=== PATIENT | female | born 1970 | race Caucasian/White ===

== ENCOUNTER → 2016-06-14 | Outpatient (CLI) | payer BC ==
--- NOTE | 2016-06-15 10:13 | MY ---
EXAMINATION: Bilateral digital mammography utilizing CAD. HISTORY: Lump. Baseline. FINDINGS: Bilateral extremely dense breast tissue. Several round masses are noted within the right breast within the region of concern, the largest triston sures approximately 3 cm mammographically. Targeted ultrasound evaluation of the subareolar to outer right breast demonstrates a 3 cm cyst at the 9 o'clock position and an adjacent 1.6 cm cyst. There is a deep 7 mm cyst at the 10 o'clock position within the far outer right breast. These all demonstr ate posterior acoustic enhancement and no internal color Doppler flow. No suspicious calcifications, masses or architectural distortions. No pathologic appearing lymph nodes, no abnormal skin thickening or nipple inversion. CAD highlighted regions appear normal at this time. IMPRESSION: BI-RADS category II - Benign finding. Continued screening according to ACR-ACS guidelines suggested. THE FALSE-NEGATIVE RATE OF MAMMOGRAM IS APPROXIMATELY 10%. MANAGEMENT OF A PALPABLE ABNORMALITY MUST BE BASED UPON CLINICAL GROUNDS. SENSITIVITY FOR DETECTION OF ABNORMALITIES IN DENSE BREASTS IS LOW. NOTE: A letter will be sent to the patient regarding findings. [facility] -- MAUREEN Fraga [phone] - FAX [phone]
== END ==
LOC: MW.MAM 09:47
PROVIDERS: ATTEND Obstetrics & Gynecology
DX: N63 Unspecified lump in breast (principal); N92.0 Excessive and frequent menstruation with regular cycle
CPT/HCPCS: 76642; G0204

== ENCOUNTER 2016-09-06 16:22 | Emergency (ER) | payer BC ==
[2016-09-06] MEDS ORDERED: Sodium Chloride 0.9% 1,000 ML IV ONE (16:50)
--- NOTE | 2016-09-06 16:57 | EDM.PDOC ---
ED HPI GENERAL MEDICAL PROBLEM - General Chief Complaint: General Stated Complaint: DEHYDRATED/DIZZY Time Seen by Provider: 09/06/16 16:51 Source of Information: Reports: Patient, Family History Limitations: Reports: No Limitations - History of Present Illness INITIAL COMMENTS - FREE TEXT/NARRATIVE: History of present illness: [46-year-old female comes in complaining of acute dizziness, weakness, and leg pains. Patient was outside last 2 or 3 days and her plus degree temperatures and now has a sunburn and is beginning to feel the effects.] Review of systems: As per history of present illness and below otherwise all systems reviewed and negative. Past medical history: As per history of present illness and as reviewed below otherwise noncontributory. Surgical history: As per history of present illness and as reviewed below otherwise noncontributory. Social history: No reported history of drug or alcohol abuse. Family history: As per history of present illness and as reviewed below otherwise noncontributory. Physical exam: HEENT: Atraumatic, normocephalic, pupils reactive, negative for conjunctival pallor or scleral icterus, mucous membranes moist, throat clear, neck supple, nontender, trachea midline. Lungs: Clear to auscultation, breath sounds equal bilaterally, chest nontender. Heart: S1S2, regular, negative for clicks, rubs, or JVD. Abdomen: Soft, nondistended but diffuse nonspecific tenderness. Negative for masses or hepatosplenomegaly. Negative for costovertebral tenderness. Pelvis: Stable nontender. Genitourinary: Deferred. Rectal: Deferred. Extremities: Atraumatic, negative for cords or calf pain. Neurovascular unremarkable. Neuro: Awake, alert, oriented. Cranial nerves II through XII unremarkable. Cerebellum unremarkable. Motor and sensory unremarkable throughout. Exam nonfocal. Diagnostics: [CBC, CMP, lactic acid, CT of abdomen with contrast] Therapeutics: [] Impression: [Constipation, UTI, ovarian cysts] Plan: [Macrobid hydrate] Definitive disposition and diagnosis as appropriate pending reevaluation and review of above. - Related Data Allergies Allergy/AdvReac Type Severity Reaction Status Date / Time Penicillins Allergy Other Verified 09/06/16 16:52 Home Meds: Home Meds Nitrofurantoin Monohyd/M-Cryst [IJD: Nitrofurantoin [place]-MCR] 100 mg PO BID #20 cap 09/06/16 [Rx] Past Medical History Genitourinary History: Reports: None - Infectious Disease History Infectious Disease History: Reports: Chicken Pox Other Infectious Disease History: childhood - Past Surgical History Female Surgical History: Reports: Section Musculoskeletal Surgical History: Reports: Arthroscopic Knee Social & Family History - Family History Family Medical History: Noncontributory - Tobacco Use Smoking Status *Q: Never Smoker Second Hand Smoke Exposure: No - Recreational Drug Use Recreational Drug Use: No ED ROS GENERAL - Review of Systems Review Of Systems: See Below (See history of present illness) ED EXAM, GENERAL - Physical Exam Exam: See Below (See history of present illness) Course - Vital Signs Last Recorded V/S: Last Vital Signs Temp 36.8 C 09/06/16 19:08 Pulse 81 09/06/16 19:08 Resp 16 09/06/16 19:08 BP 114/70 09/06/16 19:08 Pulse Ox 96 09/06/16 19:08 - Orders/Labs/Meds Orders: Active Orders 24 hr Category Date Time Status Abdomen Pelvis w Cont [CT] Stat Exams 09/06/16 17:39 Taken Labs: Laboratory Tests 09/06/16 09/06/16 09/06/16 Range/Units 16:58 16:58 17:46 WBC 16.54 H (4.0-11.0) K/uL RBC 4.35 (4.30-5.90) M/uL Hgb 13.3 (12.0-16.0) g/dL Hct 39.8 (36.0-46.0) % MCV 91.5 (80.0-98.0) fL MCH 30.6 (27.0-32.0) pg MCHC 33.4 (31.0-37.0) g/dL RDW Std Deviation 48.8 (28.0-62.0) fl RDW Coeff of Regan 14 (11.0-15.0) % Plt Count 278 (150-400) K/uL MPV 11.60 (7.40-12.00) fL Neut % (Auto) 88.1 H (48.0-80.0) % Lymph % (Auto) 5.2 L (16.0-40.0) % [place] % (Auto) 6.4 (0.0-15.0) % Eos % (Auto) 0.1 (0.0-7.0) % Baso % (Auto) 0.2 (0.0-1.5) % Neut # (Auto) 14.6 H (1.4-5.7) K/uL Lymph # (Auto) 0.9 (0.6-2.4) K/uL [place] # (Auto) 1.1 H (0.0-0.8) K/uL Eos # (Auto) 0.0 (0.0-0.7) K/uL Baso # (Auto) 0.0 (0.0-0.1) K/uL Nucleated RBC % 0.0 /100WBC Nucleated RBCs # 0 K/uL Lactate 1.0 (0.20-2.00) mmol/L Sodium 139 (136-146) mmol/L Potassium 3.7 (3.5-5.1) mmol/L Chloride 107 (98-110) mmol/L Carbon Dioxide 24 (21-31) mmol/L BUN 14 (6.0-23.0) mg/dL Creatinine 0.8 (0.6-1.5) mg/dL Est Cr Clr Drug Dosing 100.30 mL/min Estimated GFR (MDRD) > 60.0 ml/min Glucose 102 (60-110) mg/dL Calcium 9.6 (8.8-10.8) mg/dL Total Bilirubin 0.4 (0.1-1.5) mg/dL AST 25 (5-40) IU/L ALT 25 (8-54) IU/L Alkaline Phosphatase 83 (40-150) Total Protein 8.1 H (6.0-8.0) g/dL Albumin 4.2 (3.5-5.0) g/dL Globulin 3.9 H (2.0-3.5) g/dL Albumin/Globulin Ratio 1.1 L (1.3-2.8) Urine Color Urine Appearance Urine pH (5.0-8.0) Ur Specific [place] (1.001-1.035) Urine Protein (NEGATIVE) mg/dL Urine Glucose (UA) (NEGATIVE) mg/dL Urine Ketones (NEGATIVE) mg/dL Urine Occult Blood (NEGATIVE) Urine Nitrite (NEGATIVE) Urine Bilirubin (NEGATIVE) Urine Urobilinogen (<2.0) EU/dL Ur Leukocyte Esterase (NEGATIVE) Urine RBC (0-2/HPF) Urine WBC (0-5/HPF) Ur Epithelial Cells (NONE-FEW) Urine Bacteria (NEGATIVE) 09/06/16 Range/Units 18:22 WBC (4.0-11.0) K/uL RBC (4.30-5.90) M/uL Hgb (12.0-16.0) g/dL Hct (36.0-46.0) % MCV (80.0-98.0) fL MCH (27.0-32.0) pg MCHC (31.0-37.0) g/dL RDW Std Deviation (28.0-62.0) fl RDW Coeff of Regan (11.0-15.0) % Plt Count (150-400) K/uL MPV (7.40-12.00) fL Neut % (Auto) (48.0-80.0) % Lymph % (Auto) (16.0-40.0) % [place] % (Auto) (0.0-15.0) % Eos % (Auto) (0.0-7.0) % Baso % (Auto) (0.0-1.5) % Neut # (Auto) (1.4-5.7) K/uL Lymph # (Auto) (0.6-2.4) K/uL [place] # (Auto) (0.0-0.8) K/uL Eos # (Auto) (0.0-0.7) K/uL Baso # (Auto) (0.0-0.1) K/uL Nucleated RBC % /100WBC Nucleated RBCs # K/uL Lactate (0.20-2.00) mmol/L Sodium (136-146) mmol/L Potassium (3.5-5.1) mmol/L Chloride (98-110) mmol/L Carbon Dioxide (21-31) mmol/L BUN (6.0-23.0) mg/dL Creatinine (0.6-1.5) mg/dL Est Cr Clr Drug Dosing mL/min Estimated GFR (MDRD) ml/min Glucose (60-110) mg/dL Calcium (8.8-10.8) mg/dL Total Bilirubin (0.1-1.5) mg/dL AST (5-40) IU/L ALT (8-54) IU/L Alkaline Phosphatase (40-150) Total Protein (6.0-8.0) g/dL Albumin (3.5-5.0) g/dL Globulin (2.0-3.5) g/dL Albumin/Globulin Ratio (1.3-2.8) Urine Color YELLOW Urine Appearance CLEAR Urine pH 7.0 (5.0-8.0) Ur Specific [place] 1.015 (1.001-1.035) Urine Protein NEGATIVE (NEGATIVE) mg/dL Urine Glucose (UA) NEGATIVE (NEGATIVE) mg/dL Urine Ketones 15 H (NEGATIVE) mg/dL Urine Occult Blood NEGATIVE (NEGATIVE) Urine Nitrite NEGATIVE (NEGATIVE) Urine Bilirubin NEGATIVE (NEGATIVE) Urine Urobilinogen 1.0 (<2.0) EU/dL Ur Leukocyte Esterase TRACE (NEGATIVE) Urine RBC 0-1 (0-2/HPF) Urine WBC 0-1 (0-5/HPF) Ur Epithelial Cells FEW (NONE-FEW) Urine Bacteria FEW (NEGATIVE) Meds: Medications Discontinued Medications Generic Name Dose Route Start Last Admin Trade Name El PRN Reason Stop Dose Admin Sodium Chloride 1,000 mls @ 999 mls/hr 09/06/16 16:50 09/06/16 17:02 Normal Saline IV 09/06/16 17:50 999 mls/hr STAT ONE Administration Iopamidol 100 ml 09/06/16 18:02 09/06/16 18:03 Isovue Multipack-370 (76%) IVPUSH 09/06/16 18:03 100 ml ONETIME STA Administration Ketorolac Tromethamine 30 mg 09/06/16 18:02 09/06/16 18:25 Toradol IVPUSH 09/06/16 18:03 30 mg ONETIME ONE Administration Departure - Departure Time of Disposition: 19:20 Disposition: Home, Self-Care 01 Condition: Good Clinical Impression: UTI, Urinary tract infectious disease, Dehydration, Constipation - Discharge Information Prescriptions: Nitrofurantoin Monohyd/M-Cryst [IJD: Nitrofurantoin [place]-MCR] 100 mg PO BID #20 cap Forms: ED Department Discharge Additional Instructions: The following information is given to patients seen in the emergency department who are being discharged to home. This information is to outline your options for follow-up care. We provide all patients seen in our emergency department with a follow-up referral. The need for follow-up, as well as the timing and circumstances, are variable depending upon the specifics of your emergency department visit. If you don't have a primary care physician on staff, we will provide you with a referral. We always advise you to contact your personal physician following an emergency department visit to inform them of the circumstance of the visit and for follow-up with them and/or the need for any referrals to a consulting specialist. The emergency department will also refer you to a specialist when appropriate. This referral assures that you have the opportunity for follow-up care with a specialist. All of these measure are taken in an effort to provide you with optimal care, which includes your follow-up. Under all circumstances we always encourage you to contact your private physician who remains a resource for coordinating your care. When calling for follow-up care, please make the office aware that this follow-up is from your recent emergency room visit. If for any reason you are refused follow-up, please contact the [facility] Emergency Department at and asked to speak to the emergency department charge nurse. Take Medication as directed Follow-up with PCP 1-2 days Return to ED as needed as discussed - My Orders Last 24 Hours: My Active Orders 09/06/16 17:39 Abdomen Pelvis w Cont [CT] Stat - Assessment/Plan Last 24 Hours: My Active Orders 09/06/16 17:39 Abdomen Pelvis w Cont [CT] Stat
[2016-09-06 17:28] LABS: CHLORIDE,CL 107 mmol/L (98-110); SODIUM,NA 139 mmol/L (136-146)
[2016-09-06] MEDS ORDERED: Iopamidol 755 MG/ML 500 ML Multipack Bottle IVPUSH STA (18:02)
[2016-09-06] MEDS ORDERED: Ketorolac 30 MG/ML SDV IVPUSH ONE (18:02)
[2016-09-06 19:34] VITALS: BP 115/70
--- NOTE | 2016-09-07 16:25 | CT ---
EXAM DATE: 09/06/16 PATIENT'S AGE: 46 Patient: TARI UREÑA Facility: [place], [place] Site . Site : [id number] Study: CT Abdomen/Pelvis [id number]/[id number] 6:44:32 PM Ordering Physician: Doctor Arana Final Report: INDICATION: Lower abdominal pain. CT ABDOMEN AND PELVIS WITH CONTRAST TECHNIQUE: Multidetector CT imaging was performed through the abdomen and pelvis following intravenous contrast administration using 100 mL Isovue 370. Delayed images were performed through the urinary bladder. Coronal and sagittal reconstructions were generated. COMPARISON: None. FINDINGS: Lower chest: Lung bases are clear. Liver: Unremarkable aside from a small cyst in the left hepatic lobe on image 31 of series 201. Gallbladder and bile ducts: No gallbladder wall thickening or calcified gallstones. No biliary dilation identified. Pancreas: Unremarkable. Spleen: Normal. Adrenals: No nodules or masses. Kidneys, ureters, and urinary bladder: No renal masses or hydronephrosis. Incomplete distention of the urinary bladder. No obvious bladder mass or definite wall thickening. Gastrointestinal tract: Normal caliber small bowel without wall thickening. The appendix is normal. Redundant colon. Prominent volume of stool in the colon suggesting constipation. Vascular structures: Normal for age. Peritoneum: No free air, abscess, or significant free fluid. Lymph nodes: No pathologically enlarged nodes identified. Reproductive organs: Multiple cystic foci within both ovaries, the largest in the left ovary measuring 4 centimeters in size. Bilateral adnexal surgical clips. Bones: Unremarkable aside from degenerative disc disease at the lumbosacral junction. IMPRESSION: 1. Multiple bilateral ovarian cystic foci, the largest in the left ovary measuring 4 centimeters in size. Consider pelvic ultrasound for further evaluation. 2. Prominent amount of stool within the colon, suggesting constipation. 3. Nonacute additional findings as detailed above. ARTURO MARTINEZ MD [employer] Dictated by Jorden Martinez MD @ 09/06/2016 7:08:26 PM Dictated by: Jorden Martinez MD @ 09/06/2016 19:09:57 (Electronic Signature) Report Signed by Proxy. [facility]
== END 2016-09-06 19:32 | disposition home or self-care (01) ==
LOC: MW.ED 16:22
DX: N39.0 Urinary tract infection, site not specified (principal); E86.0 Dehydration; K59.00 Constipation, unspecified; Z88.0 Allergy status to penicillin; Z98.890 Other specified postprocedural states
CPT/HCPCS: 36415; 74177; 80053; 81001; 83605; 85025; 96361; 96374; 99284; J1885; J7040; Q9967; 99282

== ENCOUNTER 2016-10-02 06:30 | Day surgery (SDC) | payer BC ==
[2016-10-01 10:26] LABS: CHLORIDE,CL 107 mmol/L (98-110); SODIUM,NA 142 mmol/L (136-146)
[~2016-10-02 06:30] MED LIST: Bupivacaine 0.25% 10 ML SDV ONE; Methylene Blue 50 MG/10 ML Ampule ONE
[2016-10-02] MEDS ORDERED: Scopolamine 1.5 MG Transdermal Patch TRDERM PRN (07:03)
--- NOTE | 2016-10-02 07:03 | PCM.PREANE ---
Preanesthetic Assessment - Anesthesia/Transfusion/Family Hx Anesthesia History: Prior Anesthesia Reaction Family History of Anesthesia Reaction: No Transfusion History: No Prior Transfusion(s) Intubation History: Unknown - Review of Systems General: No Symptoms Pulmonary: No Symptoms Cardiovascular: No Symptoms Gastrointestinal: No Symptoms Neurological: No Symptoms Other: Reports: None - Physical Assessment O2 Sat by Pulse Oximetry: 98 Respiratory Rate: 16 Vital Signs: Last Vital Signs Temp 36.2 C 10/02/16 06:39 Pulse 79 10/02/16 06:39 Resp 16 10/02/16 06:39 BP 122/63 10/02/16 06:39 Pulse Ox 98 10/02/16 06:39 Height: 1.77 m Weight: 103.873 kg ASA Class: 2 Mental Status: Alert & Oriented x3 Airway Class: Mallampati = 3 Dentition: Reports: Normal Dentition Thyro-Mental Finger Breadths: 3 Mouth Opening Finger Breadths: 3 ROM/Head Extension: Full Lungs: Clear to Auscultation, Normal Respiratory Effort Cardiovascular: Regular Rate, Regular Rhythm - Lab Values: Laboratory Last Values WBC 5.92 K/uL (4.0-11.0) 10/01/16 09:42 RBC 4.48 M/uL (4.30-5.90) 10/01/16 09:42 Hgb 13.6 g/dL (12.0-16.0) 10/01/16 09:42 Hct 41.3 % (36.0-46.0) 10/01/16 09:42 MCV 92.2 fL (80.0-98.0) 10/01/16 09:42 MCH 30.4 pg (27.0-32.0) 10/01/16 09:42 MCHC 32.9 g/dL (31.0-37.0) 10/01/16 09:42 RDW Std Deviation 47.9 fl (28.0-62.0) 10/01/16 09:42 RDW Coeff of Regan 14 % (11.0-15.0) 10/01/16 09:42 Plt Count 257 K/uL (150-400) 10/01/16 09:42 MPV 11.60 fL (7.40-12.00) 10/01/16 09:42 Nucleated RBC % 0.0 /100WBC 10/01/16 09:42 Nucleated RBCs # 0 K/uL 10/01/16 09:42 Sodium 142 mmol/L (136-146) 10/01/16 09:42 Potassium 4.4 mmol/L (3.5-5.1) 10/01/16 09:42 Chloride 107 mmol/L (98-110) 10/01/16 09:42 Carbon Dioxide 28 mmol/L (21-31) 10/01/16 09:42 BUN 17 mg/dL (6.0-23.0) 10/01/16 09:42 Creatinine 0.8 mg/dL (0.6-1.5) 10/01/16 09:42 Est Cr Clr Drug Dosing 96.23 mL/min 10/01/16 09:42 Estimated GFR (MDRD) > 60.0 ml/min 10/01/16 09:42 Glucose 90 mg/dL (60-110) 10/01/16 09:42 Calcium 9.2 mg/dL (8.8-10.8) 10/01/16 09:42 HCG, Qual NEGATIVE (NEG) 10/01/16 09:42 Blood Type A NEGATIVE 10/01/16 09:42 Antibody Screen NEGATIVE 10/01/16 09:42 - Allergies Allergies/Adverse Reactions: Allergies Allergy/AdvReac Type Severity Reaction Status Date / Time ceftriaxone [From Rocephin] Allergy Hives Verified 09/28/16 10:38 hydrocodone Allergy Vomiting Verified 10/02/16 06:46 Penicillins Allergy Airway Verified 09/28/16 10:38 Tightness - Blood Blood Available: No - Anesthesia Plan Pre-Op Medication Ordered: None - Acknowledgements Anesthesia Type Planned: General Anesthesia Pt an Appropriate Candidate for the Planned Anesthesia: Yes Alternatives and Risks of Anesthesia Discussed w Pt/Guardian: Yes Pt/Guardian Understands and Agrees with Anesthesia Plan: Yes PreAnesthesia Questionnaire HEENT History: Reports: Other (See Below) Other HEENT History: wears glasses/contacts, hx of fx nose Cardiovascular History: Reports: None Respiratory History: Reports: None Gastrointestinal History: Reports: None Genitourinary History: Reports: UTI, Recurrent Other Genitourinary History: last one was 1 month ago [employer] History: Reports: Endometriosis, , Other (See Below) Other OB/BYN History: ovarian cysts Musculoskeletal History: Reports: Fracture Other Musculoskeletal History: hx of fx ankle and wrist Neurological History: Reports: Concussion Psychiatric History: Reports: None Endocrine/Metabolic History: Reports: Obesity/BMI 30+ Hematologic History: Reports: None Immunologic History: Reports: None Oncologic (Cancer) History: Reports: None Dermatologic History: Reports: None - Infectious Disease History Infectious Disease History: Reports: Chicken Pox Other Infectious Disease History: childhood - Past Surgical History Head Surgeries/Procedures: Reports: None HEENT Surgical History: Reports: Oral Surgery Other HEENT Surgeries/Procedures: wisdom teeth Female Surgical History: Reports: Section, D&C, Endometrial Ablation , Tubal Ligation Other Female Surgeries/Procedures: Uterine Ablation Musculoskeletal Surgical History: Reports: Arthroscopic Knee (left knee ACL repair) - SUBSTANCE USE Smoking Status *Q: Never Smoker Second Hand Smoke Exposure: No Recreational Drug Use History: No - HOME MEDS Home Medications: Home Meds Progesterone,Micronized [Progesterone] 200 mg PO DAILY 09/28/16 [History] - CURRENT (IN HOUSE) MEDS Current Meds: Current Medications Discontinued Medications Bupivacaine HCl (Sensorcaine-Mpf 0.25%) Confirm Administered Dose 20 ml .ROUTE .STK-MED ONE Stop: 10/01/16 15:28 Methylene Blue (Provayblue) Confirm Administered Dose 50 mg .ROUTE .STK-MED ONE Stop: 10/01/16 15:28
[2016-10-02] MEDS ORDERED: Rocuronium 10 MG/ML 10 ML Syringe ONE (07:16)
[2016-10-02] MEDS ORDERED: Ondansetron 4 MG/2 ML SDV ONE (07:16)
[2016-10-02] MEDS ORDERED: Dexamethasone 4 MG/ML 5 ML MDV ONE (07:16)
[2016-10-02] MEDS ORDERED: Neostigmine Methylsulfate 1 MG/ML 5 ML Syringe ONE (07:16)
[2016-10-02] MEDS ORDERED: fentaNYL 250 MCG/5 ML SDV ONE (07:17)
[2016-10-02] MEDS ORDERED: Propofol 200 MG/20 ML SDV ONE ×3 (07:17→09:19)
[2016-10-02] MEDS ORDERED: Midazolam 1 MG/ML 2 ML SDV ONE (07:17)
[2016-10-02] MEDS ORDERED: Fluorescein 5 ML Vial ONE (07:26)
[2016-10-02] MEDS ORDERED: fentaNYL 100 MCG/2 ML SDV ONE (08:52)
--- NOTE | 2016-10-02 10:22 | PCM.OPNOTE ---
- General Post-Op/Procedure Note Date of Surgery/Procedure: 10/02/16 Operative Procedure(s): Laparoscopic assisted vaginal hysterectomy with bilateral salpingo-oopherectomy and cystoscopy and lysis of adhesions Findings: Stave IV endometriosis,10 week size uterus, the bilateral ovaries were found to be adherent to posterior aspect of the uterus. On cystoscopy bilateral ureteral orifices with copious flow of bright green urine, no evidence of trauma to the bladder mucosa. Pre Op Diagnosis: Endometriosis, endometrial hyperplasia, menorrhagia, dysmenorrhea Post-Op Diagnosis: Same Anesthesia Technique: General ET Tube Primary Surgeon: Lida Hernandez Secondary Surgeon: Yomaira Lee Anesthesia Provider: Ernesto Donovan Training Associate: Juan Adan Pathology: Uterus, bilateral ovaries, bilateral fallopian tubes sent to pathology. Fluid Replacement, Intraop: 1,300 EBL in mLs: 200 Complications: None Known Condition: Good
[2016-10-02] MEDS: fentaNYL 100 MCG/2 ML SDV IVPUSH PRN ×4 (10:25→10:50)
[2016-10-02] MEDS ORDERED: Promethazine 25 MG/ML SDV IM PRN (10:32)
[2016-10-02] MEDS ORDERED: Acetaminophen/oxyCODONE 325-5 MG Tab PO PRN (10:32)
[2016-10-02] MEDS ORDERED: Morphine 2 MG/ML Syringe IVPUSH PRN (10:32)
[2016-10-02] MEDS ORDERED: Ketorolac 30 MG/ML SDV IVPUSH ONE (10:32)
[2016-10-02] MEDS ORDERED: Ondansetron 4 MG/2 ML SDV IVPUSH PRN (10:32)
--- NOTE | 2016-10-02 11:06 | PCM.POSTAN ---
POST ANESTHESIA ASSESSMENT - MENTAL STATUS Mental Status: Alert, Oriented - RESPIRATORY Respiratory Status: Respiratory Rate WNL, Airway Patent, O2 Saturation Stable - CARDIOVASCULAR CV Status: Pulse Rate WNL, Blood Pressure Stable - GASTROINTESTINAL GI Status: No Symptoms - PAIN Pain Score: 5 - POST OP HYDRATION Hydration Status: Adequate & Stable - OBSERVATIONS Free Text/Narrative:: no anesthesia problems
[2016-10-02] MEDS: Ketorolac 30 MG/ML SDV IVPUSH SCH ×2 (12:06→16:51)
--- NOTE | 2016-10-02 12:35 | OR ---
SURGEON: Lida Hernandez M.D. DATE OF PROCEDURE: 10/02/2016 PREOPERATIVE DIAGNOSES: Endometriosis, menometrorrhagia, and endometrial hyperplasia. POSTOPERATIVE DIAGNOSES: Endometriosis, menometrorrhagia, endometrial hyperplasia, and extensive pelvic adhesions. ASSISTANTS: 1. trust manager assistant: Yomaira Lee. 2. Second junior sales assistant: Tianna Murray MS-4. ANESTHESIA: General endotracheal. FLUIDS: 1300 mL crystalloid. ESTIMATED BLOOD LOSS: 200 mL. FINDINGS: The uterus was very well supported, approximately 10-week size, bilateral adnexa were adhered to the posterior uterus with some obliteration of the posterior cul- de-sac. There were brown implants along the peritoneum consistent with endometriosis as well as endometriomas onto the ovaries. Upon cystoscopy, there was copious flow of bright green urine from bilateral ureteral orifices. There was no evidence of any trauma to the bladder mucosa. COMPLICATIONS: None known. DISPOSITION: Stable to recovery. BRIEF HISTORY: This is a 46-year-old female. She has a history of endometriosis documented at the time of tubal sterilization. She also had an endometrial ablation. She presented to the emergency room most recently with dehydration and pelvic pain. She was found to have bilateral ovarian cysts. The largest was on the left measuring 4.9 cm. She has been followed with serial endometrial biopsies due to focus of complex hyperplasia from the endometrial curettings at the time of ablation. She continues to have lower abdominal pain and cramping. She no longer has any heavy bleeding. She has been taking Prometrium due to the endometrial hyperplasia. She desires to proceed with definitive therapy for endometriosis with hysterectomy and declined further medical management as she has completed childbearing and she has a history of endometrial hyperplasia. She is consented for a laparoscopically-assisted vaginal hysterectomy with bilateral salpingo-oophorectomy and cystoscopy with possible abdominal hysterectomy. She is higher risk for abdominal hysterectomy due to the history of adhesions, ovarian cyst, endometriosis, and having prior section. She understands this and agrees to proceed with surgery. Further risks including bleeding, infection, injury to bowel, bladder, blood vessels, ureters, or other organs, risk of thromboembolic event, and risk of anesthesia were discussed. DESCRIPTION OF PROCEDURE: With the patient in dorsal lithotomy position, under adequate general tracheal anesthesia, the abdomen was prepped with chlorhexidine and the vaginal and perineal areas were prepped with Betadine and draped in usual fashion for laparoscopically-assisted vaginal surgery. SCDs were in place. An appropriate time-out was held. She had received 2 g of Ancef IV after a test dose had been performed due to her prior reported allergy to Rocephin. After the time-out was held, bimanual examination was performed. Ortiz catheter had been placed. The bladder was backfilled with 30 mL of dilute methylene blue. Bimanual examination revealed a minimally mobile enlarged firm uterus. Hulka tenaculum was placed on the cervix. The speculum was removed. Credit Administrator's gloves were changed. Attention was then turned abdominally, where 3 mL of 0.25% Marcaine were injected inferior to the umbilicus. The anterior abdominal wall was elevated and after a small incision was made, the Veress needle was inserted into the peritoneal cavity. Confirmation of intraperitoneal placement was performed with a hanging drop test as well as opening CO2 pressure of 3 to 4 mmHg. CO2 was insufflated to develop an adequate pneumoperitoneum of 13 mmHg. The 5 mm port was placed beneath the umbilicus. The patient was placed in steep Trendelenburg position. The uterus was elevated, now was made of extensive adhesions posterior to the uterus. Two additional ports were placed 2 cm cephalad and medial to the anterior superior iliac spines on the right and the left. These were placed using a 0.25% Marcaine followed by a 5 mm incision followed by direct visualization of the placement of the port without any difficulty. The uterus was elevated. The bowel was retracted upwards and the ovaries were dissected free from the posterior cul-de-sac and the posterior uterus using blunt dissection and hydrodissection. This being performed, bilateral ureters could be identified in the medial leaf of the broad ligament. Using the LigaSure, the infundibulopelvic ligaments were then cross clamped, doubly ligated, and cut using the LigaSure coming proximally to the round ligament taking multiple pedicles with the LigaSure. The round ligament was doubly cauterized and cut. The anterior leaf of the broad ligament was then opened as was the posterior leaf. There was extensive adhesions related to posterior leaf of the broad ligament, which was opened slightly, but was then involved in extensive adhesions. The two additional pedicles were taken on the right and the left using the LigaSure. The anterior peritoneum was opened to develop an adequate bladder flap using the LigaSure as well as hydrodissection. This being completed with difficulty visualizing the lower pedicles due to the adhesions in the posterior cul-de-sac. Decision was made to proceed with a vaginal approach for the remainder of the surgery. Therefore, the abdomen was desufflated and the camera light was turned off. Instruments were retained on the abdomen and attention was then turned vaginally. The backfilled catheter was released and the weighted speculum was placed posteriorly. Cervix was grasped with a Lindsey tenaculum and the cervix was circumscribed using electrocautery. The anterior cul-de-sac was then entered using sharp and blunt dissection. The posterior cul-de-sac was attempted to be entered, but again there were extensive adhesions. After the posterior cul-de-sac was partially entered, bilateral uterosacral ligaments were cross clamped, cut, and ligated using a Emilio ligature of 0 Polysorb. At this point, I was unable to completely enter the posterior cul-de-sac and confirm that I was within the peritoneal cavity. The upper uterosacral ligament portion was then cross clamped, cut, and ligated using a Emilio ligature of 2-0 Polysorb. The remainder of the small pedicle above this was then clamped, cut, and ligated. The uterus, tubes, and ovaries were then delivered vaginally. The pedicles were inspected and appeared hemostatic. Therefore, the retained uterosacral ligatures were ligated to the vaginal apices bilaterally. The vaginal cuff was closed with a running lock suture of 0 Polysorb. Cystoscopy was then performed after the Ortiz catheter had been removed. IV fluorescein and Lasix have been given. There was copious flow of green urine from bilateral ureteral orifices. There was also no evidence of any trauma to the bladder mucosa. The speculum was then placed into the vagina again to confirm hemostasis of the vaginal cuff and it was hemostatic. The Ortiz catheter was then replaced and the vertical mill operator's gloves and gown were changed and attention was then turned again abdominally. The abdomen was re-insufflated. The pelvis was copiously irrigated, carefully inspected. Under high and low pressure, there were no areas of bleeding. In the anterior cul-de-sac, the Endo Avitene was placed as well as an area on the right, where there was just a small amount of oozing. The pelvis being completely hemostatic. The abdomen was completely desufflated. The ports were removed. The skin was closed with subcuticular suture of 4-0 Monocryl. Final sponge, needle, and instrument counts were reported as correct. There were no known complications. The patient was transferred to recovery in good condition. BALTAZAR BENOIT /[id number]
--- NOTE | 2016-10-02 17:55 | PCM.SURGPN ---
- General Info Date of Service: 10/02/16 Date of Surgery/Procedure: 10/02/16 POD#: 0 Post-Op Diagnosis: menorrhagia, stage IV endometriosis, endometrial hyperplasia. Functional Status: Reports: Pain Controlled, Tolerating Diet, Ambulating, Other (requests to be discharged this evening, states she has walked, eaten and pain is controlled.). Denies: Urinating (catheter has not yet been removed.) - Review of Systems General: Reports: No Symptoms HEENT: Reports: No Symptoms Pulmonary: Reports: No Symptoms Cardiovascular: Reports: No Symptoms Gastrointestinal: Reports: No Symptoms Genitourinary: Reports: No Symptoms Musculoskeletal: Reports: No Symptoms Skin: Reports: No Symptoms Neurological: Reports: No Symptoms Psychiatric: Reports: No Symptoms - Patient Data Vitals - Most Recent: Last Vital Signs Temp 36.3 C 10/02/16 16:50 Pulse 63 10/02/16 16:50 Resp 16 10/02/16 16:50 BP 112/58 L 10/02/16 16:50 Pulse Ox 96 10/02/16 16:50 Weight - Most Recent: 103.873 kg I&O - Last 24 Hours: Intake & Output 10/02/16 10/02/16 10/02/16 06:59 14:59 22:59 Intake Total 3100 150 Output Total 800 355 Balance 2300 -205 Med Orders - Current: Current Medications Ketorolac Tromethamine (Toradol) 30 mg IVPUSH Q6H ESTHER Stop: 10/07/16 10:32 Last Admin: 10/02/16 16:51 Dose: 30 mg Morphine Sulfate (Morphine) 2 mg IVPUSH Q2H PRN PRN Reason: Pain (severe 7-10) Last Admin: 10/02/16 12:11 Dose: 2 mg Ondansetron HCl (Zofran) 4 mg IVPUSH Q6H PRN PRN Reason: Nausea/Vomiting Last Admin: 10/02/16 12:34 Dose: 4 mg Oxycodone/Acetaminophen (Percocet 325-5 Mg) 1 - 2 tab PO Q4H PRN PRN Reason: Pain (moderate 4-6) Promethazine HCl (Phenergan) 25 mg IM Q6H PRN PRN Reason: Nausea/Vomiting Scopolamine (Transderm-Scop) 1.5 mg TRDERM Q72H PRN PRN Reason: Nausea Last Admin: 10/02/16 07:28 Dose: 1.5 mg Discontinued Medications Bupivacaine HCl (Sensorcaine-Mpf 0.25%) Confirm Administered Dose 20 ml .ROUTE .STK-MED ONE Stop: 10/01/16 15:28 Dexamethasone (Dexamethasone) Confirm Administered Dose 20 mg .ROUTE .STK-MED ONE Stop: 10/02/16 07:17 Fentanyl (Sublimaze) Confirm Administered Dose 250 mcg .ROUTE .STK-MED ONE Stop: 10/02/16 07:18 Fentanyl (Sublimaze) Confirm Administered Dose 100 mcg .ROUTE .STK-MED ONE Stop: 10/02/16 08:53 Fentanyl (Sublimaze) 50 - 100 mcg IVPUSH Q5M PRN PRN Reason: Pain (severe 7-10) Stop: 10/02/16 10:42 Last Admin: 10/02/16 10:50 Dose: 50 mcg Fluorescein Sodium (Ak-Fluor) Confirm Administered Dose 5 ml .ROUTE .STK-MED ONE Stop: 10/02/16 07:27 Glycopyrrolate () Confirm Administered Dose 1 mg .ROUTE .STK-MED ONE Stop: 10/02/16 07:17 Ketorolac Tromethamine (Toradol) 30 mg IVPUSH ONETIME ONE Stop: 10/02/16 10:33 Last Admin: 10/02/16 12:07 Dose: Not Given Lidocaine HCl (Xylocaine-Mpf 1%) Confirm Administered Dose 5 ml .ROUTE .STK-MED ONE Stop: 10/02/16 07:17 Methylene Blue (Provayblue) Confirm Administered Dose 50 mg .ROUTE .STK-MED ONE Stop: 10/01/16 15:28 Midazolam HCl (Versed 1 Mg/Ml) Confirm Administered Dose 2 mg .ROUTE .STK-MED ONE Stop: 10/02/16 07:18 Neostigmine Methylsulfate (Neostigmine) Confirm Administered Dose 5 mg .ROUTE .STK-MED ONE Stop: 10/02/16 07:17 Ondansetron HCl (Zofran) Confirm Administered Dose 4 mg .ROUTE .STK-MED ONE Stop: 10/02/16 07:17 Propofol (Diprivan 20 Ml) Confirm Administered Dose 400 mg .ROUTE .STK-MED ONE Stop: 10/02/16 07:18 Propofol (Diprivan 20 Ml) Confirm Administered Dose 200 mg .ROUTE .STK-MED ONE Stop: 10/02/16 08:40 Propofol (Diprivan 20 Ml) Confirm Administered Dose 200 mg .ROUTE .STK-MED ONE Stop: 10/02/16 09:20 Rocuronium [place] (Zemuron) Confirm Administered Dose 100 mg .ROUTE .STK-MED ONE Stop: 10/02/16 07:17 - Exam Wound/Incisions: Dressing Dry and Intact General: Alert Neck: Supple Lungs: Clear to Auscultation, Normal Respiratory Effort Cardiovascular: Regular Rate, Regular Rhythm GI/Abdominal Exam: Normal Bowel Sounds, Soft, Non-Tender, No Organomegaly, No Distention, No Abnormal Bruit, No Mass, Pelvis Stable Extremities: Normal Inspection, Normal Range of Motion, Non-Tender, No Pedal Edema, Normal Capillary Refill Psy/Mental Status: Alert, Normal Affect, Normal Mood - Problem List & Annotations (1) Endometriosis of ovary Status: Acute Current Visit: Yes (2) Endometrial hyperplasia, complex SNOMED Code(s): 272952442 Code(s): N85.01 - BENIGN ENDOMETRIAL HYPERPLASIA Status: Acute Current Visit: Yes (3) Heavy menstrual period SNOMED Code(s): 276052257 Code(s): N92.0 - EXCESSIVE AND FREQUENT MENSTRUATION WITH REGULAR CYCLE Status: Acute Current Visit: Yes Qualifiers: Menorrahagia type: with irregular cycle Qualified Code(s): N92.1 - Excessive and frequent menstruation with irregular cycle - Problem List Review Problem List Initiated/Reviewed/Updated: Yes - My Orders Last 24 Hours: Active Orders 24 hr Category Date Time Status Patient Status [ADT] Routine ADT 10/02/16 10:32 Active Antiembolic Devices [RC] PER UNIT ROUTINE Care 10/02/16 10:33 Active Notify Provider Intake and Out [RC] ASDIRECTED Care 10/02/16 10:32 Active Notify Provider Vital Signs [RC] ASDIRECTED Care 10/02/16 10:32 Active RT Incentive Spirometry [RC] Q2HWA Care 10/02/16 10:32 Active Up With Assistance [RC] PER UNIT ROUTINE Care 10/02/16 10:32 Active Up ad Claire [RC] PER UNIT ROUTINE Care 10/02/16 10:32 Active Urinary Catheter Removal [RC] Per Unit Routine Care 10/02/16 10:32 Active Vital Signs [RC] PER UNIT ROUTINE Care 10/02/16 10:32 Active Regular Diet [DIET] Diet 10/02/16 Dinner Active BASIC METABOLIC PANEL,BMP [CHEM] AM Lab 10/03/16 10:45 Ordered BASIC METABOLIC PANEL,BMP [CHEM] Timed Lab 10/02/16 17:49 Ordered CBC WITH AUTO DIFF [HEME] AM Lab 10/03/16 05:11 Ordered HEMATOCRIT [HEME] Routine Lab 10/02/16 17:49 Ordered HEMOGLOBIN [HEME] Routine Lab 10/02/16 17:49 Ordered Acetaminophen/oxyCODONE [Percocet 325-5 MG] Med 10/02/16 10:32 Active 1 - 2 tab PO Q4H PRN Ketorolac [Toradol] Med 10/02/16 10:45 Active 30 mg IVPUSH Q6H Morphine Med 10/02/16 10:32 Active 2 mg IVPUSH Q2H PRN Ondansetron [Zofran] Med 10/02/16 10:32 Active 4 mg IVPUSH Q6H PRN Promethazine [Phenergan] Med 10/02/16 10:32 Active 25 mg IM Q6H PRN Scopolamine [Transderm-Scop] Med 10/02/16 07:03 Active 1.5 mg TRDERM Q72H PRN Peripheral IV Discontinue [OM.PC] Routine Oth 10/02/16 10:32 Ordered Sequential Compression Device [OM.PC] Per Unit Routine Oth 10/02/16 10:32 Ordered Resuscitation Status Routine Resus Stat 10/02/16 10:32 Ordered Medication Orders Ketorolac Tromethamine (Toradol) 30 mg IVPUSH Q6H ESTHER Stop: 10/07/16 10:32 Last Admin: 10/02/16 16:51 Dose: 30 mg Admin: 10/02/16 12:06 Dose: Morphine Sulfate (Morphine) 2 mg IVPUSH Q2H PRN PRN Reason: Pain (severe 7-10) Last Admin: 10/02/16 12:11 Dose: 2 mg Ondansetron HCl (Zofran) 4 mg IVPUSH Q6H PRN PRN Reason: Nausea/Vomiting Last Admin: 10/02/16 12:34 Dose: 4 mg Oxycodone/Acetaminophen (Percocet 325-5 Mg) 1 - 2 tab PO Q4H PRN PRN Reason: Pain (moderate 4-6) Promethazine HCl (Phenergan) 25 mg IM Q6H PRN PRN Reason: Nausea/Vomiting Scopolamine (Transderm-Scop) 1.5 mg TRDERM Q72H PRN PRN Reason: Nausea Last Admin: 10/02/16 07:28 Dose: 1.5 mg - Assessment Assessment (Free Text/Narrative):: POD#0 after LAVH/ BSO with lysis of adhesions. Stable, denies hot flashes to this point. Tolerating diet, pain well controlled. She requests discharge this evening - Plan Plan (Free Text/Narrative):: Remove catheter check postop labs, if able to void and labs are stable may be discharged to home. Discussed discharge precautions. Will send in rx for Dominga newton that she can use if she develops menopausal symptoms
[2016-10-02 18:25] LABS: CHLORIDE,CL 101 mmol/L (98-110); SODIUM,NA 137 mmol/L (136-146)
[2016-10-02 20:09] VITALS: BP 130/65
== END 2016-10-02 19:50 | disposition home or self-care (01) ==
LOC: MW.SDS 06:30 → MW.MS 10:52 → MW.SDS 19:50
PROVIDERS: ATTEND Obstetrics & Gynecology
DX: N72 Inflammatory disease of cervix uteri (principal); N80.1 Endometriosis of ovary; N80.2 Endometriosis of fallopian tube; N85.8 Other specified noninflammatory disorders of uterus; N73.6 Female pelvic peritoneal adhesions (postinfective); N87.9 Dysplasia of cervix uteri, unspecified; N88.8 Other specified noninflammatory disorders of cervix uteri; Z98.890 Other specified postprocedural states
CPT/HCPCS: 36415; 58552; 80048; 84703; 85014; 85018; 85027; 86850; 86900; 86901; A9270; J1100; J1885; J2250; J2270; J2405; J3010; 00944; 88307; J2704

== ENCOUNTER 2019-04-09 07:55 | Day surgery (SDC) | payer BC, OTHER ==
[~2019-04-09 07:55] MED LIST changes: -Bupivacaine 0.25% 10 ML SDV ONE; +Lactated Ringers 1,000 ML IV SCH; -Methylene Blue 50 MG/10 ML Ampule ONE
--- NOTE | 2019-04-09 08:52 | PCM.PREANE ---
Preanesthetic Assessment - Anesthesia/Transfusion/Family Hx Anesthesia History: Prior Anesthesia Reaction Family History of Anesthesia Reaction: No Transfusion History: Prior Transfusion Without Reaction Intubation History: Unknown - Review of Systems General: No Symptoms Pulmonary: No Symptoms Cardiovascular: No Symptoms Gastrointestinal: No Symptoms Neurological: No Symptoms - Physical Assessment Height: 5 ft 11 in Weight: 121.563 kg ASA Class: 1 Mental Status: Alert & Oriented x3 Airway Class: Mallampati = 2 Dentition: Reports: Normal Dentition ROM/Head Extension: Full Lungs: Clear to Auscultation, Normal Respiratory Effort Cardiovascular: Regular Rate - Allergies Allergies/Adverse Reactions: Allergies Allergy/AdvReac Type Severity Reaction Status Date / Time ceftriaxone [From Rocephin] Allergy Hives Verified 04/07/19 10:46 hydrocodone Allergy Vomiting Verified 04/07/19 10:46 Penicillins Allergy Airway Verified 04/07/19 10:46 Tightness - Blood Blood Available: No - Anesthesia Plan Pre-Op Medication Ordered: None - Acknowledgements Anesthesia Type Planned: General Anesthesia Pt an Appropriate Candidate for the Planned Anesthesia: Yes Alternatives and Risks of Anesthesia Discussed w Pt/Guardian: Yes Pt/Guardian Understands and Agrees with Anesthesia Plan: Yes PreAnesthesia Questionnaire HEENT History: Reports: Other (See Below) Other HEENT History: wears glasses/contacts, hx of fx nose Cardiovascular History: Reports: None Respiratory History: Reports: None Gastrointestinal History: Reports: Cholelithiasis Genitourinary History: Reports: UTI, Recurrent INSTRUMENT TECHNOLOGIST History: Reports: Endometrial Ablation, Endometriosis, , Other ( See Below) Other OB/BYN History: ovarian cysts Musculoskeletal History: Reports: Arthritis, Fracture Other Musculoskeletal History: hx of fx ankle, coccyx and wrist Neurological History: Reports: None Psychiatric History: Reports: None Endocrine/Metabolic History: Reports: Obesity/BMI 30+ Hematologic History: Reports: None Immunologic History: Reports: None Oncologic (Cancer) History: Reports: None Dermatologic History: Reports: None - Infectious Disease History Infectious Disease History: Reports: Chicken Pox, Mononucleosis Other Infectious Disease History: childhood - Past Surgical History Head Surgeries/Procedures: Reports: None HEENT Surgical History: Reports: Oral Surgery Other HEENT Surgeries/Procedures: wisdom teeth Cardiovascular Surgical History: Reports: None Respiratory Surgical History: Reports: None GI Surgical History: Reports: None Female Surgical History: Reports: Section, D&C, Endometrial Ablation , Hysterectomy, Tubal Ligation Other Female Surgeries/Procedures: Uterine Ablation Endocrine Surgical History: Reports: None Neurological Surgical History: Reports: None Musculoskeletal Surgical History: Reports: Arthroscopic Knee, Knee Replacement Oncologic Surgical History: Reports: None Dermatological Surgical History: Reports: None - SUBSTANCE USE Smoking Status *Q: Never Smoker Recreational Drug Use History: No - HOME MEDS Home Medications: Home Meds Scopolamine [Transderm-Scop] 1 patch TRDERM ONETIME 04/07/19 [History] - CURRENT (IN HOUSE) MEDS Current Meds: Current Medications Lactated Ringer's (Ringers, Lactated) 1,000 mls @ 125 mls/hr IV ASDIRECTED ESTHER
[2019-04-09] MEDS ORDERED: Bupivacaine 0.5% 30 ML SDV ONE (09:35)
[2019-04-09] MEDS ORDERED: Sugammadex Sodium 200 MG/2 ML VIAL ONE ×2 (10:02→12:22)
[2019-04-09] MEDS ORDERED: Midazolam 1 MG/ML 2 ML SDV ONE (10:08)
[2019-04-09] MEDS ORDERED: Rocuronium 100 MG/10 ML Syringe ONE (10:08)
[2019-04-09] MEDS ORDERED: fentaNYL 250 MCG/5 ML SDV ONE (10:08)
[2019-04-09] MEDS ORDERED: Lidocaine 2% 5 ML SDV ONE (10:08)
[2019-04-09] MEDS ORDERED: Propofol 200 MG/20 ML SDV ONE (10:09)
[2019-04-09] MEDS ORDERED: Dexamethasone 4 MG/ML 5 ML MDV ONE (10:10)
[2019-04-09] MEDS ORDERED: Ondansetron 4 MG/2 ML SDV ONE (10:10)
[2019-04-09] MEDS ORDERED: Clindamycin Phosphate in D5W 50 ML ONE (11:13)
[2019-04-09] MEDS ORDERED: Clindamycin Phosphate in D5W 600 MG in Premix Bag 1 BAG IV ONE ×2 (11:28)
[2019-04-09] MEDS ORDERED: Phenylephrine/Normal Saline 100 MCG/ML 10 ML Syringe ONE (11:52)
[2019-04-09] MEDS ORDERED: 50% Dextrose in Water 50 ML Syringe IVPUSH PRN (12:19)
[2019-04-09] MEDS ORDERED: Albuterol 0.083% 2.5 MG/3 ML Neb Soln NEB PRN (12:19)
[2019-04-09] MEDS ORDERED: EPINEPHrine 1:10,000 1 MG/10 ML Syringe IVPUSH PRN (12:19)
[2019-04-09] MEDS ORDERED: Atropine 0.1 MG/ML 10 ML Syringe IVPUSH PRN ×2 (12:19)
[2019-04-09] MEDS ORDERED: Naloxone 0.4 MG/ML Syringe IVPUSH PRN (12:19)
[2019-04-09] MEDS ORDERED: Ketorolac 30 MG/ML SDV IVPUSH ONE (12:20)
[2019-04-09] MEDS ORDERED: fentaNYL 100 MCG/2 ML SDV ONE (12:31)
[2019-04-09] MEDS ORDERED: Promethazine 25 MG/ML SDV IM ONE (12:58)
[2019-04-09] MEDS: fentaNYL 100 MCG/2 ML SDV IVPUSH PRN ×2 (12:59→13:16)
--- NOTE | 2019-04-09 13:00 | PCM.OPNOTE ---
- General Post-Op/Procedure Note Date of Surgery/Procedure: 04/09/19 Operative Procedure(s): Laparoscopic cholecystectomy Findings: Normal appearing gallbladder with some omental adhesions Pre Op Diagnosis: Biliary dyskinesia Post-Op Diagnosis: same Anesthesia Technique: General ET Tube Primary Surgeon: Juanita Rajan Fluid Replacement, Intraop: 1,100 Output, Urine Amount: 125 EBL in mLs: 10 Condition: Good Free Text/Narrative:: Intake & Output 04/08/19 04/09/19 04/09/19 22:59 06:59 14:59 Output Total 125 Balance -125
--- NOTE | 2019-04-09 14:45 | PCM.POSTAN ---
POST ANESTHESIA ASSESSMENT - MENTAL STATUS Mental Status: Oriented - VITAL SIGNS Vital Signs: Last Vital Signs Temp 97.3 F 04/09/19 13:49 Pulse 53 L 04/09/19 14:15 Resp 15 04/09/19 14:15 BP 118/74 04/09/19 14:15 Pulse Ox 94 L 04/09/19 14:15 - RESPIRATORY Respiratory Status: Respiratory Rate WNL, Airway Patent, O2 Saturation Stable, Supplemental Oxygen - CARDIOVASCULAR CV Status: Pulse Rate WNL - GASTROINTESTINAL GI Status: No Symptoms - POST OP HYDRATION Hydration Status: Adequate & Stable
--- NOTE | 2019-04-09 15:25 | PCM48HPAN ---
Post Anesthesia Note - EVALUATION WITHIN 48HRS OF ANESTHETIC Vital Signs in Normal Range: Yes Patient Participated in Evaluation: Yes Respiratory Function Stable: Yes Airway Patent: Yes Cardiovascular Function Stable: Yes Hydration Status Stable: Yes Pain Control Satisfactory: Yes Nausea and Vomiting Control Satisfactory: Yes Mental Status Recovered: Yes Vital Signs: Last Vital Signs Temp 36.3 C 04/09/19 13:49 Pulse 53 L 04/09/19 14:15 Resp 15 04/09/19 14:15 BP 118/74 04/09/19 14:15 Pulse Ox 94 L 04/09/19 14:15
[2019-04-09 15:47] VITALS: BP 119/67; PULSE 50
--- NOTE | 2019-04-09 19:05 | OR ---
SURGEON: JUANITA RAJAN MD DATE OF PROCEDURE: 04/09/2019 PREOPERATIVE DIAGNOSIS: Biliary dyskinesia. POSTOPERATIVE DIAGNOSIS: Biliary dyskinesia. PROCEDURE PERFORMED: Laparoscopic cholecystectomy. PRIMARY SURGEON: Juanita Rajan MD. ANESTHESIA: General endotracheal anesthesia. FLUIDS: 1100 mL of crystalloid. URINE OUTPUT: 125 mL. ESTIMATED BLOOD LOSS: 10 mL. FINDINGS: Normal-appearing gallbladder with some omental adhesions. COMPLICATIONS: None. INDICATIONS: The patient is a 49-year-old female who has been suffering with right upper quadrant pain. She underwent a HIDA scan that showed biliary dyskinesia. I explained the need for a laparoscopic, possible open, cholecystectomy. The patient and I discussed the procedures; expected perioperative course; and risks including bleeding, infection, or damage to surrounding structures. She verbalized understanding and wishes to proceed. PROCEDURE IN DETAIL: The patient was brought into the OR and placed on the OR table in supine position. A time-out was completed verifying the patient's name, age, date of , allergies, and procedure to be performed. General endotracheal anesthesia was induced. The patient's left arm was tucked at her side. A Ortiz catheter was placed. The abdomen was prepped and draped in usual standard fashion. I anesthetized the infraumbilical fold with 0.5% Marcaine plain. An 11 blade was used to make an incision along the infraumbilical fold. Cautery was used to dissect down to the level of subcutaneous fat and achieve hemostasis. I bluntly dissected down to the level of the fascia. The fascia was elevated with Italia's and incised sharply. The peritoneum was identified, elevated with hemostats, and incised sharply as well. Entry into the abdomen was palpated digitally. Stay sutures were placed on either side of the fascia using 0 Vicryl sutures. A 12 mm Wes trocar was inserted in the abdomen and the abdomen insufflated. A 5 mm 30-degree scope was inserted. I inspected the area underneath my initial trocar placement. No damage to surrounding structures was noted. The patient was placed into reverse Trendelenburg position and airplaned slightly to the left. 5 mm trocars were placed in the following locations under direct visualization; one in the epigastric area, one in the right flank, and one 2 fingerbreadths below the right subcostal margin in the midclavicular line. The dome of the gallbladder was grasped and elevated cranially. There was some flimsy adhesions from the gallbladder wall to the omentum. These were taken down easily with gentle blunt dissection. The infundibulum then was grasped, and I began my dissection along the infundibulum. The cystic duct was identified immediately. With further blunt dissection, I was able to clear away the tissue surrounding the cystic artery. I then cleared away one-third of the cystic plate. Once my critical view was achieved, I triply clipped and ligated the cystic duct and doubly clipped and ligated the cystic artery. The remainder of the attachments of the gallbladder wall to the cystic plate were taken down using electrocautery. The gallbladder was then placed into an Endo Catch bag and removed through the infraumbilical port site. The Wes trocar was replaced, and I inspected my operative field. It was hemostatic with no evidence of biliary leakage. The clips appeared to be in good position. The 5 mm trocars were then removed under direct visualization and the abdomen allowed to desufflate. The 12 mm Wes trocar was removed as well. I then closed the fascia at the infraumbilical port site with the interrupted 0 Vicryl sutures. I closed the subcutaneous fat layer with a running 3-0 Vicryl stitch. The skin was closed with a running 4-0 Monocryl stitch. The 5 mm trocar sites were closed with interrupted 4-0 Monocryl sutures. Steri-Strips and sterile dressings were applied. The patient tolerated the procedure well and was transferred to PACU in stable condition. All counts were complete and correct at the end of the case. VICENTE / CY /[id number]
== END 2019-04-09 15:30 | disposition home or self-care (01) ==
LOC: MW.SDS 07:55
PROVIDERS: ATTEND Surgery
DX: K81.1 Chronic cholecystitis (principal); K82.8 Other specified diseases of gallbladder; M19.90 Unspecified osteoarthritis, unspecified site; E66.9 Obesity, unspecified; Z68.37 Body mass index [BMI] 37.0-37.9, adult; Z88.0 Allergy status to penicillin; Z88.5 Allergy status to narcotic agent; Z88.1 Allergy status to other antibiotic agents
CPT/HCPCS: 47562; J0131; J1100; J1885; J2001; J2250; J2370; J2405; J2550; J2704; J3010; J3490; J7120; S0077; 00790; 88304

== ENCOUNTER 2022-07-08 17:54 | Emergency (ER) | payer OTHER, BC ==
[2022-07-08 18:07] LABS: BILIRUBIN,URINE NEGATIVE (NEGATIVE); COLOR,URINE YELLOW; GLUCOSE,URINE NEGATIVE (NEGATIVE); KETONES,URINE NEGATIVE (NEGATIVE); LEUKOCYTE ESTERASE,URINE SMALL (NEGATIVE); NITRITE,URINE POSITIVE (NEGATIVE); OCCULT BLOOD,URINE SMALL (NEGATIVE); PH,URINE 5.5 (5.0-8.0); PROTEIN,URINE 30 mg/dL (NEGATIVE)
[2022-07-08 18:18] LABS: APPEARANCE,URINE SLT CLOUDY; WBC,URINE 20-30 (0-5/HPF)
[2022-07-08 18:19] LABS: BACTERIA,URINE 1+ (NEGATIVE); EPITHELIAL CELLS,URINE FEW (NONE-FEW)
[2022-07-08] MEDS ORDERED: Ciprofloxacin 500 MG Tab PO ONE (18:25)
[2022-07-08] MEDS ORDERED: Phenazopyridine 200 MG Tab PO ONE (18:25)
[2022-07-08 18:45] VITALS: BP 148/77; PULSE 88
== END 2022-07-08 18:38 | disposition home or self-care (01) ==
LOC: MW.ED 17:54
DX: N39.0 Urinary tract infection, site not specified (principal); E66.9 Obesity, unspecified; Z68.36 Body mass index [BMI] 36.0-36.9, adult; Z88.1 Allergy status to other antibiotic agents; Z88.5 Allergy status to narcotic agent; Z88.0 Allergy status to penicillin
CPT/HCPCS: 81001; 87086; 99283; A9270; 87088; 87186

== ENCOUNTER 2023-09-07 08:38 | Emergency (ER) | payer OTHER, BC ==
[2023-09-07] MEDS: oxyCODONE 5 MG/5 ML Cup PO ONE (10:09)
[2023-09-07] MEDS: oxyCODONE 5 MG/5 ML Cup PO STA (10:14)
[2023-09-07] MEDS: Ondansetron 4 MG Tab.DIS PO ONE (10:19)
[2023-09-07] MEDS: oxyCODONE 5 MG Tab PO STA (10:19)
[2023-09-07 18:10] VITALS: BP 126/79; PULSE 73
== END 2023-09-07 11:45 | disposition home or self-care (01) ==
LOC: MW.ED 08:38
DX: S82.65XA Nondisplaced fracture of lateral malleolus of left fibula, initial encounter for closed fracture (principal); E66.9 Obesity, unspecified; Z79.899 Other long term (current) drug therapy; Z88.0 Allergy status to penicillin; Z88.6 Allergy status to analgesic agent; Z68.37 Body mass index [BMI] 37.0-37.9, adult; X50.1XXA Overexertion from prolonged static or awkward postures, initial encounter
CPT/HCPCS: 29515; 73610; 73630; 99283; A9270